=== PATIENT | female | born 1950 | race Caucasian/White ===

== ENCOUNTER 2020-04-07 08:52 | Outpatient (CLI) | payer MEDICARE, SELFPAY ==
--- NOTE | ~2020-04-07 | XR_ITS ---
EXAMINATION: XR abdomen/kub 1V EXAM DATE: 04/07/2020 09:03 INDICATION: Low back pain and hematuria. TECHNIQUE: Frontal upright projection of the upper abdomen, frontal projection of the lower abdomen f or interpretation. There is no prior study for comparison. FINDINGS: There is expected amount of colonic stool and gas. No small bowel dilation, nonobstructiv e bowel gas pattern. There are no suspicious calcifications identified. There is no organomegaly suspected. Mild lumbar levoscoliosis and moderate spondylosis. IMPRESSION: Moderate lumbar spondylosis. Reviewed, dictated and finalized at location B.
== END 2020-04-07 08:53 | disposition home or self-care (01) ==
PROVIDERS: PCP Family Medicine; Visit Provider Nurse Practitioner Family
DX: M47.896 Other spondylosis, lumbar region (principal)
CPT/HCPCS: 74018

== ENCOUNTER → 2020-04-12 08:11 | Outpatient (CLI) | payer MEDICARE, SELFPAY ==
--- NOTE | ~2020-04-12 | MM_ITS ---
EXAMINATION: MM screening [facility] BI w sukumar HISTORY: Screening mammogram TECHNIQUE: Craniocaudal and mediolateral oblique 3-D tomosynthesis images were obtained and synthetic 2-D images were generated. CAD analysis was submitted and interpreted. COMPARISON: Comparison to multiple prior studies sequentially, with oldest reviewed study dated 12/01. BREAST PARENCHYMAL COMPOSITION: There are scattered areas of fibroglandular density. FINDINGS: There is no evidence of suspicious mass, calcification, or architectural distortion to sugg est malignancy in either breast. There has been no suspicious interval change. IMPRESSION: 1. No mammographic evidence of malignancy. 2. Recommend routine screening mammography in one year. BI-RADS Category 1: Negative Reviewed, dictated and finalized at location A.
== END ==
PROVIDERS: PCP Family Medicine; Visit Provider Nurse Practitioner Family
DX: Z12.31 Encounter for screening mammogram for malignant neoplasm of breast (principal)
CPT/HCPCS: 77063; 77067

== ENCOUNTER 2020-04-14 17:06 | Outpatient (CLI) | payer MEDICARE, SELFPAY ==
--- NOTE | ~2020-04-14 | XR_ITS ---
EXAMINATION:XR cervical spine 4-5V DATE: 04/14/2020 17:22 INDICATION: Anesthesia of the skin and bilateral numbness of the arms TECHNIQUE: AP, lateral, lateral swimmers and odontoid views of the cervical spine are provided. COMPARISON: None FINDINGS: There is no fracture. There are 2 mm of anterolisthesis of C4 on C5 and 2 mm of retrolisthe sis of C5 on C6 and C6 on C7. There is severe loss of intervertebral disc space height at C5-6 and C6 -7. The vertebral body heights are maintained. No fracture is identified. Degenerative osteophytes pr oject from the anterior endplates of multiple vertebral bodies. There is severe facet and uncovertebr al joint osteoarthritis of the mid and lower cervical spine. The odontoid is intact. The prevertebral soft tissues are normal. IMPRESSION: 1. Severe cervical spondylosis without acute findings. Reviewed, dictated and finalized at location A.
== END 2020-04-14 17:07 | disposition home or self-care (01) ==
PROVIDERS: PCP Family Medicine; Visit Provider Family Medicine
DX: R20.0 Anesthesia of skin (principal); M47.892 Other spondylosis, cervical region
CPT/HCPCS: 72050

== ENCOUNTER 2020-05-05 09:12 | Outpatient (CLI) | payer MEDICARE, SELFPAY ==
--- NOTE | ~2020-05-05 | MR_ITS ---
EXAMINATION: MR cervical spine wo con EXAM DATE: 05/05/2020 10:08 INDICATION: Cervical spondylosis. TECHNIQUE: Multi-sequential, multiplanar MR images of the cervical spine were obtained without contra st. Axial T2, axial T2 MERGE sequence. Sagittal T1, T2, T2 fat saturation images also obtained. Th ere is no prior study for comparison. FINDINGS: There is 4 mm anterolisthesis C3 on C4, 2 mm anterolisthesis C7 on T1. Moderate disc disea se at C5-6 and C6-7, mild to moderate at C4-5. The spinal cord signal intensity and intrinsic morphol ogy is normal. Cervicomedullary junction is normal in appearance. Level by level evaluation: C2-C3: Disc does not extend beyond the endplate margin. Uncovertebral joint arthropathy: Mild right. Facet joint arthropathy: Mild bilateral. Neural foraminal stenosis: No stenosis. Central canal stenosis: No stenosis. C3-C4: There is a mild diffuse disc bulge. Uncovertebral joint arthropathy: Mild bilateral. Facet joint arthropathy: Moderate to severe bilateral. Neural foraminal stenosis: Mild to moderate bilateral. Central canal stenosis: No stenosis. C4-C5: There is a mild diffuse disc bulge. Uncovertebral joint arthropathy: Mild to moderate bilateral. Facet joint arthropathy: Severe left, moderate right. Neural foraminal stenosis: Moderate to severe left, mild to moderate right. Central canal stenosis: Mild. C5-C6: There is a mild to moderate diffuse disc bulge. Uncovertebral joint arthropathy: Severe bilateral. Facet joint arthropathy: Moderate bilateral. Neural foraminal stenosis: Severe left, moderate to severe right. Central canal stenosis: Mild to moderate . Central canal measures 6-7 mm in mid sagittal AP diameter . C6-C7: There is a mild to moderate diffuse disc bulge. Uncovertebral joint arthropathy: Severe bilateral. Facet joint arthropathy: Mild to moderate. Neural foraminal stenosis: Moderate to severe bilateral. Central canal stenosis: Mild to moderate . Central canal measures 7 mm in mid sagittal AP diameter . C7-T1: There is a minimal diffuse disc bulge. Uncovertebral joint arthropathy: Mild. Facet joint arthropathy: Moderate left, mild right. Neural foraminal stenosis: Mild bilateral. Central canal stenosis: Mild. IMPRESSION: 1. Significant multilevel arthropathy causing neural foraminal stenosis as detailed above. Reviewed, dictated and finalized at location A. IMPRESSION: 1. Significant multilevel arthropathy causing neural foraminal stenosis as det savita above.
== END 2020-05-05 09:13 | disposition home or self-care (01) ==
LOC: ANHIMG 09:17
PROVIDERS: PCP Family Medicine; Visit Provider Family Medicine
DX: M47.22 Other spondylosis with radiculopathy, cervical region (principal)
CPT/HCPCS: 72141

== ENCOUNTER 2020-05-10 00:19 | Outpatient (CLI) | payer MEDICARE, SELFPAY ==
[2020-05-11 14:41] LABS: SARS-CoV-2 RNA PCR Negative
== END 2020-05-10 00:20 | disposition home or self-care (01) ==
LOC: ANHCOVIDDT 00:19
PROVIDERS: PCP Family Medicine; Visit Provider Internal Medicine Gastroenterology
DX: Z01.812 Encounter for preprocedural laboratory examination (principal); Z11.59 Encounter for screening for other viral diseases
CPT/HCPCS: 87635; C9803; U0003

== ENCOUNTER 2020-05-12 02:28 | Day surgery (SDC) | payer MEDICARE, SELFPAY ==
[2020-05-03 12:19] VITALS: BMI 39.0
[2020-05-12 07:57] VITALS: BP 147/78; PULSE 70; RESP 18; TEMP 36; O2SAT 98
[2020-05-12] MEDS: LACTATED RINGERS 1,000 ML 150 ML IV CONT (08:00)
--- NOTE | 2020-05-12 08:55 | PM.IMHP ---
H&P: HPI History of Present Illness Chief complaint: GERD Narrative: Reason for visit EGD. This very pleasant lady seen in consultation at the request of primary physician. Impression: Your very pleasant lady with a history of GERD. Her symptoms seem well controlled, however she has had complaints of fluttering in her chest. She is here for endoscopic evaluation to assess for underlying reflux disease. She also has complaints of hoarseness which may be reflux in origin. HTN. HLD. Obesity. Recommendation: EGD. History: Very pleasant lady's being evaluated for reflux disease. She has a history reflux disease and heartburn is well controlled. She does complain of occasional hoarseness however. The patient did report some fluttering in the lower chest. She denied any significant chest pain, palpitations, shortness of breath, dyspnea on exertion, etc. Patient is here for EGD to assess for reflux disease. patient denies any nausea, vomiting, dysphagia or odynophagia. Lower gastrointestinal symptoms are denied. Physical examination: General: very pleasant patient in no acute distress. HEENT: Head was normocephalic sclerae is clear mouth without masses neck was supple. Heart: Rate rhythm regular without S3 or S4. Lungs: CTA. Abdomen: Soft with no guarding or rigidity. Bowel sounds were active. Neurologic: Cranial nerves 2 through 12 intact. No focal defects. No clonus. Musculoskeletal system: Revealed no joint tenderness or swelling no muscle atrophy. Extremities: Reveal no significant edema. Skin: Warm and dry with normal turgor. Mental status: intact. Patient is alert and oriented. Review of Systems Review of Systems: All systems reviewed & are unremarkable except as noted in HPI and below [facility] Social History Social History Smoking status: Never smoker Alcohol intake: never Meds Home Medications and Allergies Home Medications Medication Instructions Recorded Confirmed Type rosuvastatin 10 mg tablet 10 mg PO DAILY #90 tablet 11/05/19 05/03/20 Rx aspirin 81 mg chewable tablet 81 mg PO DAILY 12/10/19 05/03/20 History loratadine 10 mg tablet 10 mg PO DAILY 12/10/19 05/03/20 History losartan 25 mg tablet 25 mg PO DAILY #90 tablet 12/23/19 05/03/20 Rx pantoprazole 40 mg tablet,delayed 40 mg PO BID #180 tablet 03/21/20 05/03/20 Rx release cyclobenzaprine 10 mg tablet 10 mg PO TID PRN #60 tablet 04/14/20 05/03/20 Rx L. gasseri-B. bifidum-B longum 1 cap PO DAILY 05/03/20 05/03/20 History [[facility]] acetaminophen 500 mg PO Q6H PRN 05/03/20 05/03/20 History ascorbate calcium-bioflavonoid 1 tablet PO DAILY 05/03/20 05/03/20 History [Marjorie-C with Bioflavonoids] calcium carbonate-vitamin D3 1 tablet PO DAILY 05/03/20 05/03/20 History [Caltrate 600 plus D] cholecalciferol (vitamin D3) 10 mcg PO DAILY 05/03/20 05/03/20 History [Vitamin D3] fluticasone propionate [Flonase 1 spray INTRANASAL DAILY 05/03/20 05/03/20 History Allergy Relief] melatonin 5 mg PO HS PRN 05/03/20 05/03/20 History vvuvwsof-rpc-hpgi-FA-lutein 1 tablet PO DAILY 05/03/20 05/03/20 History [Centrum Silver Women] vitamin B complex [Super B-50 1 cap PO DAILY 05/03/20 05/03/20 History Complex] wheat dextrin [Benefiber Clear SF 1 packet PO DAILY 05/03/20 05/03/20 History (dextrin)] Allergies Allergy/AdvReac Type Severity Reaction Status Date / Time No Known Allergies Allergy Verified 05/03/20 12:13 Vital Signs Vital Signs - 24 hr 05/12/20 07:57 Temperature 36.0 C L Pulse Rate 70 Respiratory Rate 18 Blood Pressure 147/78 H Pulse Oximetry 98
[2020-05-12 09:10] VITALS: BP 117/67; PULSE 65; RESP 19; O2SAT 96
[2020-05-12 09:20] VITALS: BP 130/104; PULSE 66; RESP 23; O2SAT 95
[2020-05-12 09:30] VITALS: BP 140/68; PULSE 66; RESP 23; O2SAT 100
== END 2020-05-12 09:45 | disposition home or self-care (01) ==
PROVIDERS: PCP Family Medicine; Visit Provider Internal Medicine Gastroenterology
PROC: 0DJ08ZZ Inspection of Upper Intestinal Tract, Via Natural or Artificial Opening Endoscopic (ICD-10-PCS; CPT 43235; principal; 2020-05-12 08:30)
DX: K21.9 Gastro-esophageal reflux disease without esophagitis (principal); K44.9 Diaphragmatic hernia without obstruction or gangrene; K22.8 Other specified diseases of esophagus; E78.5 Hyperlipidemia, unspecified; I10 Essential (primary) hypertension; E66.01 Morbid (severe) obesity due to excess calories; Z68.41 Body mass index [BMI] 40.0-44.9, adult; Z79.82 Long term (current) use of aspirin
CPT/HCPCS: 43239; 87081; 87635; 88305; C9803; J2704; J7120; U0003

== ENCOUNTER 2020-05-23 07:08 | Outpatient (CLI) | payer MEDICARE, SELFPAY ==
--- NOTE | ~2020-05-23 | XR_ITS ---
EXAMINATION: XR UGIAC w barium swallow DATE: 05/23/2020 08:13 INDICATION: Diaphragmatic hernia TECHNIQUE: The patient drank thick barium, gas-producing crystals, and thin barium. Fluoroscopic spot radiographs of the hypopharynx, esophagus, stomach and proximal small bowel were obtained. A total o f 1084 images were recorded. Fluoroscopy exposure time was 2.0 minutes. COMPARISON: None. FINDINGS: The pharynx is symmetric and without evidence of mass lesion or mucosal irregularity. The esophagus i s tortuous distally but without mass or stricture. There are few tertiary contractions. Esophageal mo tility is otherwise normal. No significant interval change in a moderate-sized sliding-type hiatal he rnia with gastroesophageal junction approximately 6 cm above the level of the diaphragm. There was re current gastroesophageal reflux of moderate amount of contrast to the level of the upper thoracic eso phagus with provocative maneuvers. The stomach and proximal small bowel are normal. IMPRESSION: 1. No significant interval change in a moderate-sized sliding-type hiatal hernia with recurrent gastr oesophageal reflux with provocative maneuvers. Reviewed, dictated and finalized at location A. IMPRESSION: 1. No significant interval change in a moderate-sized sliding-type hiatal herni a with recurrent gastroesophageal reflux with provocative maneuvers.
== END 2020-05-23 07:09 | disposition home or self-care (01) ==
PROVIDERS: PCP Family Medicine; Visit Provider Internal Medicine Gastroenterology
DX: K44.9 Diaphragmatic hernia without obstruction or gangrene (principal)
CPT/HCPCS: 74246

== ENCOUNTER → 2020-06-21 11:23 | Outpatient (CLI) | payer MEDICARE, SELFPAY ==
--- NOTE | ~2020-06-21 | DEXA_ITS ---
Bone Density Report Name: Lora hCen Age: 69 Sex: Female Ethnicity: White Date of : 1950 Indication: postmenopausal; screening for osteoporosis; height loss; Referring Provider: Xuan, Juani Study: Bone densitometry was performed. Exam Date: June 21, 2020 Accession number: [id number] Bone Density: Region BMD T-score Z-score Classification AP Spine (L1, L2) 0.979 0.0 2.1 Normal Femoral Neck (Left) 0.868 0.2 2.1 Normal Total Hip (Left) 0.919 -0.2 1.4 Normal Femoral Neck (Right) 0.849 0.0 1.9 Normal Total Hip (Right) 0.871 -0.6 1.0 Normal Total Hip Mean 0.895 -0.4 1.2 Normal World Health Organization criteria for BMD impression classify patients as: Normal (T-score at or above -1.0), Osteopenia (T-score between -1.0 and -2.5), or Osteoporosis (T-score at or below -2.5). 10-year Fracture Risk: FRAX not reported because: All T-scores for Spine Total, Hip Total, Femoral Neck at or above -1.0 Previous Exams: Region Exam Age BMD T-score BMD Change BMD Change Date g/cm2 vs Baseline vs Previous AP Spine(L1, L2) 06/21/2020 69 0.979 0.0 -0.101 -0.089 12/01/2015 65 1.069 0.8 -0.011 0.087 09/19/2011 61 0.982 0.0 -0.099 -0.099 01/19/2008 57 1.080 0.9 Total Hip(Left) 06/21/2020 69 0.919 -0.2 0.064 0.021 12/01/2015 65 0.898 -0.4 0.043* 0.054 09/19/2011 61 0.844 -0.8 -0.011 -0.011 01/19/2008 57 0.855 -0.7 Total Hip(Right) 06/21/2020 69 0.871 -0.6 0.060 -0.014 12/01/2015 65 0.884 -0.5 0.073* 0.032 09/19/2011 61 0.852 -0.7 0.041 0.041 01/19/2008 57 0.811 -1.1 *Denotes significance at 95% confidence level, LSC for AP Spine = 0.022 g/cm2, LSC for Total Hip = 0.027 g/cm2 Clinical Information Provided by Patient: Has used the following medications: Vitamin D, Calcium Patient maximum height was 65.5 Menopause Age: 50 Drinks caffeinated beverages Onset of menses at age 10 Number of children 2 Impression: The patient has normal bone mass. No significant bone loss was observed. Discussion: BONE DENSITY IS ABOVE THE MINIMUM DESIRABLE LEVEL AT ALL SKELETAL SITES TESTED. This patient?s bone mineral density is above the minimum desirable level (T-score -1.0 or better) at all sites measured. The patient should
== END ==
PROVIDERS: PCP Family Medicine; Visit Provider Nurse Practitioner
DX: Z78.0 Asymptomatic menopausal state (principal)
CPT/HCPCS: 77080

== ENCOUNTER → 2021-03-13 01:45 | Outpatient (CLI) | payer MEDICARE, SELFPAY ==
[2021-03-13 17:04] LABS: SARS-CoV-2 RNA PCR Negative
== END ==
PROVIDERS: PCP Family Medicine; Visit Provider Internal Medicine Gastroenterology
DX: Z01.812 Encounter for preprocedural laboratory examination (principal); Z20.822 Contact with and (suspected) exposure to COVID-19
CPT/HCPCS: C9803; U0003; U0005

== ENCOUNTER 2021-03-16 01:11 | Day surgery (SDC) | payer MEDICARE, SELFPAY ==
[2021-03-06 14:46] VITALS: BMI 34.0
[2021-03-16 10:27] VITALS: BP 136/71; PULSE 62; RESP 18; TEMP 36.6; O2SAT 98; BMI 33.5
[2021-03-16] MEDS: LACTATED RINGERS 1,000 ML 150 ML IV CONT (10:38)
--- NOTE | 2021-03-16 11:03 | WPDANESEPPF ---
Anes - Initial Pre Proc Eval Procedure: Operation Date: 03/16/21 12:30 Proposed Procedures p Colonoscopy - Jimmie Can DO Date/Time: 03/16/21 11:03 Surgeon: Jimmie Can DO Pre Op Diagnosis: alternating diarrhea and constipation Patient Data Age: 70 Gender: F Height: 5 ft 3 in Weight: 85.8 kg Last Vital Signs Temp 97.9 F 03/16/21 10:27 Pulse 62 03/16/21 10:27 Resp 18 03/16/21 10:27 BP 136/71 03/16/21 10:27 Pulse Ox 98 03/16/21 10:27 Allergies Allergy/AdvReac Type Severity Reaction Status Date / Time No Known Allergies Allergy Verified 03/16/21 10:26 Home Medications Medication Instructions Recorded Confirmed Type aspirin 81 mg chewable tablet 81 mg PO DAILY 12/10/19 03/06/21 History loratadine 10 mg tablet 10 mg PO DAILY 12/10/19 03/06/21 History acetaminophen 500 mg PO Q6H PRN 05/03/20 03/06/21 History ascorbate calcium-bioflavonoid 1 tablet PO DAILY 05/03/20 03/06/21 History [Marjorie-C with Bioflavonoids] calcium carbonate-vitamin D3 1 tablet PO DAILY 05/03/20 03/06/21 History [Caltrate 600 plus D] fluticasone propionate [Flonase 1 spray INTRANASAL DAILY 05/03/20 03/06/21 History Allergy Relief] zkwyxsjq-nfp-nmxu-FA-lutein 1 tablet PO DAILY 05/03/20 03/06/21 History [Centrum Silver Women] vitamin B complex [Super B-50 1 cap PO DAILY 05/03/20 03/06/21 History Complex] wheat dextrin [Benefiber Clear SF 1 packet PO DAILY 05/03/20 03/06/21 History (dextrin)] rosuvastatin 10 mg tablet 10 mg PO DAILY #90 tablet 08/27/20 03/06/21 Rx pantoprazole 40 mg tablet,delayed See Rx Instructions .ROUTE 09/07/20 03/06/21 Rx release .COMPLEX #180 tablet losartan 25 mg tablet 25 mg PO DAILY #90 tablet 01/23/21 03/06/21 Rx gabapentin 300 mg capsule 300 mg PO QHS #30 cap 02/20/21 03/06/21 Rx Bifidobacterium infantis [Align] 4 mg PO DAILY 03/06/21 03/06/21 History cholecalciferol (vitamin D3) 50 mcg PO DAILY 03/06/21 03/06/21 History Patient hx anesthesia problems: none Family hx anesthesia problems: none PMFSH Past Medical History Medical History (Updated 03/07/21 @ 12:36 by Michael Bardales NP) Bilateral hand numbness Hyperlipemia Obesity (BMI 35.0-39.9 without comorbidity) Stage 3 chronic kidney disease Family History Family History Mother Family history of osteoarthritis Family history of arthritis Father Cerebrovascular accident Family history of Alzheimer's disease Grandparent Diabetes mellitus Social History Social History Smoking status: Never smoker Alcohol intake: never Living arrangements: with family No - Kendal Final PreProcedure Day of Procedure 03/16/21 11:03 Patient weight: obese Heart: regular rate and rhythm Lungs: clear to auscultation Airway: Mallampati scale class II Neurological: alert and oriented Last oral intake: >/= 8 hours ASA classification: III Emergent: no Anesthetic plan: proceed Anesthesia type and monitoring: general GIVS and standard monitoring Informed Consent: The patient's anesthetic plan and its attendant risks and benefits were discussed with the patient/family/POA. Questions were solicited and answers provided to the satisfaction of the patient/family/POA.
--- NOTE | 2021-03-16 12:10 | WPDGICN ---
GI Consult Note Consult date/time: 03/16/21 12:10 HPI: Reason for visit is colonoscopy. Very pleasant lady seen in consultation at the request of the primary physician. Impression: Here is a very pleasant lady with blood in stool. Evaluate for lying inflammatory neoplastic disease. She did have a history of diarrhea and now difficulty with constipation. This may be secondary to underlying IBS. HTN. HLD. Degenerative disc disease. Neuropathy. Recommendation: Colonoscopy. History: This very pleasant lady's being evaluated for an episode of diarrhea. She had diarrhea for approximately 3 weeks. She was noted to have some black stools. The patient subsequently began having constipation. Further hematochezia, melena acholic stools or tonight. The patient was found to have occult blood in stool. She was referred for colonoscopy. Physical examination: General: very pleasant patient in no acute distress. HEENT: Head was normocephalic sclerae is clear mouth without masses neck was supple. Heart: Rate rhythm regular without S3 or S4. Lungs: CTA. Abdomen: Soft with no guarding or rigidity. Bowel sounds were active. Neurologic: Cranial nerves 2 through 12 intact. No focal defects. No clonus. Musculoskeletal system: Revealed no joint tenderness or swelling no muscle atrophy. Extremities: Reveal no significant edema. Skin: Warm and dry with normal turgor. Mental status: intact. Patient is alert and oriented. Review of Systems Review of Systems: All systems reviewed & are unremarkable except as noted in HPI and below PMFSH Past Medical History Medical History (Updated 03/07/21 @ 12:36 by Michael Bardales NP) Bilateral hand numbness Hyperlipemia Obesity (BMI 35.0-39.9 without comorbidity) Stage 3 chronic kidney disease Family History Family History Mother Family history of osteoarthritis Family history of arthritis Father Cerebrovascular accident Family history of Alzheimer's disease Grandparent Diabetes mellitus Social History Social History Smoking status: Never smoker Alcohol intake: never Living arrangements: with family Meds Home Medications and Allergies Home Medications Medication Instructions Recorded Confirmed Type aspirin 81 mg chewable tablet 81 mg PO DAILY 12/10/19 03/06/21 History loratadine 10 mg tablet 10 mg PO DAILY 12/10/19 03/06/21 History acetaminophen 500 mg PO Q6H PRN 05/03/20 03/06/21 History ascorbate calcium-bioflavonoid 1 tablet PO DAILY 05/03/20 03/06/21 History [Marjorie-C with Bioflavonoids] calcium carbonate-vitamin D3 1 tablet PO DAILY 05/03/20 03/06/21 History [Caltrate 600 plus D] fluticasone propionate [Flonase 1 spray INTRANASAL DAILY 05/03/20 03/06/21 History Allergy Relief] jqwlojsl-tfo-kjlb-FA-lutein 1 tablet PO DAILY 05/03/20 03/06/21 History [Centrum Silver Women] vitamin B complex [Super B-50 1 cap PO DAILY 05/03/20 03/06/21 History Complex] wheat dextrin [Benefiber Clear SF 1 packet PO DAILY 05/03/20 03/06/21 History (dextrin)] rosuvastatin 10 mg tablet 10 mg PO DAILY #90 tablet 08/27/20 03/06/21 Rx pantoprazole 40 mg tablet,delayed See Rx Instructions .ROUTE 09/07/20 03/06/21 Rx release .COMPLEX #180 tablet losartan 25 mg tablet 25 mg PO DAILY #90 tablet 01/23/21 03/06/21 Rx gabapentin 300 mg capsule 300 mg PO QHS #30 cap 02/20/21 03/06/21 Rx Bifidobacterium infantis [Align] 4 mg PO DAILY 03/06/21 03/06/21 History cholecalciferol (vitamin D3) 50 mcg PO DAILY 03/06/21 03/06/21 History Allergies Allergy/AdvReac Type Severity Reaction Status Date / Time No Known Allergies Allergy Verified 03/16/21 10:26 Vital Signs Vital Signs - 24 hr 03/16/21 10:27 Temperature 36.6 C Pulse Rate 62 Respiratory Rate 18 Blood Pressure 136/71 Pulse Oximetry 98
[2021-03-16 12:40] VITALS: BP 98/61; PULSE 65; RESP 19; O2SAT 97
[2021-03-16 12:50] VITALS: BP 124/74; PULSE 67; RESP 22; O2SAT 98
[2021-03-16 13:00] VITALS: BP 138/78; PULSE 66; RESP 19; O2SAT 100
== END 2021-03-16 13:15 | disposition home or self-care (01) ==
PROVIDERS: PCP Family Medicine; Visit Provider Internal Medicine Gastroenterology
PROC: 0DJD8ZZ Inspection of Lower Intestinal Tract, Via Natural or Artificial Opening Endoscopic (ICD-10-PCS; CPT 45378; principal; 2021-03-16 12:30)
DX: R19.5 Other fecal abnormalities (principal); D12.3 Benign neoplasm of transverse colon; K63.5 Polyp of colon; K52.9 Noninfective gastroenteritis and colitis, unspecified; K64.8 Other hemorrhoids; K57.30 Diverticulosis of large intestine without perforation or abscess without bleeding; I12.9 Hypertensive chronic kidney disease with stage 1 through stage 4 chronic kidney disease, or unspecified chronic kidney disease; N18.30 Chronic kidney disease, stage 3 unspecified; E78.5 Hyperlipidemia, unspecified; G62.9 Polyneuropathy, unspecified; Z79.82 Long term (current) use of aspirin; E66.9 Obesity, unspecified; Z68.33 Body mass index [BMI] 33.0-33.9, adult
CPT/HCPCS: 45380; 88305; C9803; J2704; J7120; U0003; U0005

== ENCOUNTER → 2021-04-26 13:18 | Outpatient (CLI) | payer MEDICARE, SELFPAY ==
--- NOTE | ~2021-04-26 | MM_ITS ---
EXAMINATION: MM screening [facility] BI w sukumar HISTORY: Screening mammogram TECHNIQUE: Craniocaudal and mediolateral oblique 3-D tomosynthesis images were obtained and synthetic 2-D images were generated. CAD analysis was submitted and interpreted. COMPARISON: 04/12/2020, 04/02/2018, 12/04/2016 BREAST PARENCHYMAL COMPOSITION: There are scattered areas of fibroglandular density. FINDINGS: Stable architectural distortion in the outer left breast is consistent with history of prio r excisional biopsy. There is no evidence of suspicious mass, calcification, or architectural distort ion to suggest malignancy in either breast. There has been no suspicious interval change. IMPRESSION: 1. No mammographic evidence of malignancy. 2. Recommend routine screening mammography in one year. BI-RADS Category 2: Benign finding(s). Reviewed, dictated and finalized at location A.
== END ==
PROVIDERS: Visit Provider Nurse Practitioner
DX: Z12.31 Encounter for screening mammogram for malignant neoplasm of breast (principal)
CPT/HCPCS: 77063; 77067

== ENCOUNTER 2022-03-22 12:30 | Outpatient (CLI) | payer MEDICARE, SELFPAY ==
--- NOTE | 2022-03-22 12:46 | ECHO_ITS ---
Patient Info Name: Lora Chen Age: 71 years : 1950 Gender: Female Ht: 64 in Wt: 160 lbs BSA: 1.83 m2 HR: 72 bpm BP: 163 / 82 mmHg Technical Quality: Good Exam Date: 03/22/2022 1:11 PM Exam Location: [facility] Patient Status: Outpatient Admit Date: 03/22/2022 Staff Ordering Physician: Leopoldo Castaneda DO Test Engineering Intern: Sergei Randolph RDCS, RT Attending Provider: Leopoldo Castaneda DO Referring Physician: Leonel ZAMBRANO; Exam Type: CA echo doppler color flow Study Info Indications R01.1 - Cardiac murmur, unspecified Complete two-dimensional, color flow and Doppler transthoracic echocardiogram is performed. Strain analysis performed. Summary 1. Complete two-dimensional, color flow and Doppler transthoracic echocardiogram is performed. 2. Left ventricular chamber dimension is normal. 3. Left ventricular systolic function is normal, estimated at 60-65%. 4. The left ventricular diastolic function is grade I diastolic dysfunction. 5. E/e' 7 is not elevated. 6. Global longitudinal strain is normal at -23.5%. 7. Left atrial chamber dimension is mildly enlarged. 8. There is mild aortic valve sclerosis. 9. There is trace mitral valve regurgitation. 10. There is mild tricuspid valve regurgitation. 11. No pulmonary hypertension, estimated pulmonary arterial systolic pressure is 36 mmHg. 12. There is trace pulmonic regurgitation. Left Ventricle E/e' 7 is not elevated. Global longitudinal strain is normal at -23.5%. Left ventricular chamber dimension is normal. Left ventricular systolic function is normal, estimated at 60-65%. The left ventricular diastolic function is grade I diastolic dysfunction. Right Ventricle Right ventricular systolic function is normal and with normal TAPSE 2.4 cm. Right ventricular chamber dimension is normal. Left Atria Left atrial chamber dimension is mildly enlarged. Right Atria Right atrial chamber dimension is normal. Aortic Valve The aortic valve is trileaflet. There is mild aortic valve sclerosis. There is no aortic valve stenosis. There is no aortic valve regurgitation. Pulmonic Valve There is trace pulmonic regurgitation. Mitral Valve There is no mitral valve stenosis. There is trace mitral valve regurgitation. Tricuspid Valve There is mild tricuspid valve regurgitation. No pulmonary hypertension, estimated pulmonary arterial systolic pressure is 36 mmHg. Pericardium/Pleural There is no pericardial effusion. Inferior Vena Cava Normal inferior vena cava with >50% collapse upon inspiration consistent with normal right atrial pressure, 5 mmHg. Aorta The aortic root size at the sinus of Valsalva is normal. Left Ventricular Outflow Tract Name Value Normal LVOT 2D LVOT Diameter 2.0 cm LVOT Doppler LVOT Peak Gradient 5 mmHg LVOT Mean Gradient 2 mmHg LVOT VTI 28 cm LVOT VTI/AV VTI Ratio 0.8 LVOT Stroke Volume 85 ml LVOT CO 6.0 l/min LVOT C
== END 2022-03-22 12:31 | disposition home or self-care (01) ==
PROVIDERS: PCP Family Medicine; Visit Provider Internal Medicine Cardiovascular Disease
DX: R01.1 Cardiac murmur, unspecified (principal); I36.1 Nonrheumatic tricuspid (valve) insufficiency
CPT/HCPCS: 93306

== ENCOUNTER → 2022-08-06 10:22 | Outpatient (CLI) | payer MEDICARE, SELFPAY ==
--- NOTE | ~2022-08-06 | US_ITS ---
EXAMINATION: US soft tissue head and neck DATE: 08/06/2022 10:54 INDICATION: Localized swelling, mass and lump, neck. TECHNIQUE: Multiple ultrasound grayscale images of the neck were obtained. COMPARISON: None. FINDINGS: The right thyroid lobe measures 5.1 x 1.4 x 1.7 cm. The left thyroid lobe measures 4.0 x 1.2 x 1.7 c m. In the right thyroid lobe, there is a 1.3 cm almost completely cystic nodule (TI-RADS TR1). In th e right thyroid lobe, there is a 17 mm solid, hypoechoic, wider than tall nodule with lobulated alie n without echogenic foci (TR4). In the left thyroid lobe, there is a 5 mm solid, isoechoic, wider sukhjinder n tall nodule with ill-defined margin without echogenic foci (TR3). There are normal lymph nodes in t he neck bilaterally. IMPRESSION: 1. Multinodular goiter. Consider ultrasound-guided fine-needle aspiration of the 17 mm right thyroid nodule. Reviewed, dictated and finalized at location A. IMPRESSION: 1. Multinodular goiter. Consider ultrasound-guided fine-needle aspiration of th e 17 mm right thyroid nodule.
== END ==
PROVIDERS: PCP Physician Assistant Medical; Visit Provider Physician Assistant Medical
DX: E04.2 Nontoxic multinodular goiter (principal)
CPT/HCPCS: 76536

== ENCOUNTER 2022-08-27 09:32 | Outpatient (CLI) | payer MEDICARE, SELFPAY ==
--- NOTE | ~2022-08-27 | US_ITS ---
EXAMINATION: US FNA w image guidance DATE: 08/27/2022 10:48 INDICATION: Nontoxic single thyroid nodule. TECHNIQUE: The procedure and its benefits and risks were discussed with the patient. Risks specifically discusse d included bleeding. The patient verbalized understanding of the risks and agreed to proceed. The nec k was prepped and draped in the usual sterile manner. 1% lidocaine was used for local anesthesia. 6 passes were made with a 25G needle into the lesion under ultrasound guidance. There were no immedia te complications. FINDINGS: Grayscale ultrasound images demonstrate needles advanced into a 17 mm nodule in right thyroid lobe fo r biopsy. IMPRESSION: 1. Ultrasound-guided fine needle aspiration of a right thyroid nodule. Reviewed, dictated and finalized at location A. LINER
== END 2022-08-27 09:33 | disposition home or self-care (01) ==
PROVIDERS: PCP Family Medicine; Visit Provider Physician Assistant Medical
DX: E04.1 Nontoxic single thyroid nodule (principal)
CPT/HCPCS: 10005; 88173; 88305

== ENCOUNTER → 2022-09-20 09:24 | Outpatient (CLI) | payer MEDICARE, SELFPAY ==
--- NOTE | ~2022-09-20 | XR_ITS ---
EXAMINATION: XR chest 2V 09/20/2022 09:32 INDICATION: Cough and shortness of breath PROCEDURE: 2 view chest COMPARISON: Comparison to multiple prior studies sequentially, with oldest reviewed study dated 09/14. FINDINGS: The lungs are clear. The cardiomediastinal silhouette is within normal limits. There are no pleural effusions. There is no pneumothorax suspected. There is a hiatal hernia. IMPRESSION: 1: NO ACUTE CARDIOPULMONARY DISEASE. Reviewed, dictated and finalized at location A. 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
== END ==
PROVIDERS: PCP Family Medicine; Visit Provider Family Medicine
DX: R05.9 Cough, unspecified (principal); R06.02 Shortness of breath
CPT/HCPCS: 71046

== ENCOUNTER → 2022-10-23 07:15 | Outpatient (CLI) | payer MEDICARE, SELFPAY ==
--- NOTE | ~2022-10-23 | MM_ITS ---
EXAMINATION: MM screening [facility]to BI w sukumar HISTORY: Screening mammogram TECHNIQUE: Craniocaudal and mediolateral oblique 3-D tomosynthesis images were obtained and synthetic 2-D images were generated. CAD analysis was submitted and interpreted. COMPARISON: 04/26/2021, 04/12/2020, 04/02/2018 right lateral screening mammogram examinations BREAST PARENCHYMAL COMPOSITION: There are scattered areas of fibroglandular density. FINDINGS: Stable left architectural distortion secondary to prior biopsies. Scattered benign calcific ations are noted bilaterally. There is no evidence of suspicious mass, calcification, or architectura l distortion to suggest malignancy in either breast. There has been no suspicious interval change. IMPRESSION: 1. No mammographic evidence of malignancy. 2. Recommend routine screening mammography in one year. BI-RADS Category 2: Benign finding(s). Reviewed, dictated and finalized at location A. MAN
== END ==
PROVIDERS: PCP Family Medicine; Visit Provider Nurse Practitioner
DX: Z12.31 Encounter for screening mammogram for malignant neoplasm of breast (principal)
CPT/HCPCS: 77063; 77067

== ENCOUNTER 2022-12-21 01:16 | Day surgery (SDC) | payer MEDICARE, SELFPAY ==
[2022-12-12 13:00] VITALS: BMI 30.9
[2022-12-21 08:04] VITALS: BP 143/55; PULSE 61; RESP 18; TEMP 36.4; O2SAT 100; BMI 32.5
[2022-12-21] MEDS: LACTATED RINGERS 1,000 ML 150 ML IV CONT (08:31)
--- NOTE | 2022-12-21 08:42 | PM.HPGS ---
History of Present Illness History of Present Illness Consent: Risks, benefits, and alternatives have been discussed and questions answered. Patient agrees to proceed with procedure. Chief complaint: GERD, hiatal hernia Narrative: Lora Chen is a 72 year old female with gerd that is well controlled after increased ppi to twice daily, also h/o hiatal hernia Review of Systems Constitutional: Constitutional: Denies headache(s) and Denies weakness Eyes: Eyes: Denies blurry vision ENT: Reports Normal hearing present, Denies headache(s) and Denies neck pain Cardiovascular: Cardiovascular: Denies chest pain and Denies dyspnea Respiratory: Respiratory: Denies dyspnea Gastrointestinal: Gastrointestinal: Reports no additional gastrointestinal complaints Genitourinary: Genitourinary: Denies dysuria Musculoskeletal: Musculoskeletal: Denies neck pain Integumentary/Breasts: Skin/Breast: Denies dry skin Neurologic: Reports Normal hearing present, Denies headache(s) and Denies weakness Psychiatric: Psychiatric: Denies anxiety Endocrine: Endocrine: Denies change in body appearance Hematologic/Lymphatic: Hematologic/Lymphatic: Denies easy bleeding Allergic/Immunologic: Allergic/Immunologic: Denies urticaria PMFSH Past Medical History Medical History Bilateral hand numbness BMI 28.0-28.9,adult BMI greater than 30 Cardiomyopathy CKD (chronic kidney disease) stage 3, GFR 30-59 ml/min Colon cancer screening Colon polyps GERD (gastroesophageal reflux disease) Hiatal hernia History of esophageal stricture Hyperlipemia Microscopic colitis Obesity (BMI 35.0-39.9 without comorbidity) Stenosis of cervical spine with myelopathy Swelling of joint of hand Family History Family History Mother Family history of osteoarthritis Family history of arthritis Father Cerebrovascular accident Family history of Alzheimer's disease Grandparent Diabetes mellitus Social History Social History Smoking status: Never smoker Alcohol intake: never Drinks per week: 5 Substance use: never Substance use type: does not use Living arrangements: alone Spiritual care concerns: No Meds Home Medications and Allergies Home Medications Medication Instructions Recorded Confirmed Type loratadine 10 mg tablet (Claritin) 10 mg PO DAILY 12/10/19 12/12/22 History fluticasone propionate 50 1 spray intranasal DAILY 05/03/20 12/12/22 History mcg/actuation nasal spray,suspension (Flonase Allergy Relief) multivit with 1 tablet PO DAILY 05/03/20 12/12/22 History nnmtwbvu-oqse-GM-lutein 8 mg iron-400 mcg-300 mcg tablet (Centrum Silver Women) vitamin B complex (Super B-50 1 cap PO DAILY 05/03/20 10/25/22 History Complex capsule) wheat dextrin 3 gram/3.5 gram oral 1 packet PO DAILY 05/03/20 10/25/22 History powder packet (Benefiber Clear Sugar Free(dextrin)) Bifidobacterium infantis 4 mg 4 mg PO DAILY 03/06/21 10/25/22 History capsule (Align) cholecalciferol (vitamin D3) 50 50 mcg PO DAILY 03/06/21 10/25/22 History mcg (2,000 unit) tablet hard/soft/gas permeable prods 11/02/21 10/25/22 History (Systane Contacts eye drops) rosuvastatin 10 mg tablet 10 mg PO DAILY #90 tabs 04/19/22 10/25/22 Rx metronidazole 0.75 % topical cream 1 applic topical BID 08/01/22 12/12/22 History vit C 250 mg-E 90 mg-zinc 40 1 tablet PO QAM AND QPM 08/01/22 10/25/22 History mg-copper 1 nn-waqokt-tncvtg chew tablet (PreserVision AREDS-2) budesonide 3 mg 3 mg PO DAILY 1 month #30 ea 10/25/22 12/12/22 Rx capsule,delayed,extended release pantoprazole 40 mg tablet,delayed 40 mg PO DAILY #90 tabs 12/21/22 Rx release Allergies Allergy/AdvReac Type Severity Reaction Status Date / Time No Known Allergies Allergy Verifi
--- NOTE | 2022-12-21 08:52 | WPDANESEPPF ---
Anes - Initial Pre Proc Eval Procedure: Operation Date: 12/21/22 09:00 Proposed Procedures p Esophagogastroduodenoscopy - Ignacio Chaney MD Date/Time: 12/21/22 08:52 Surgeon: Ignacio Chaney MD Pre Op Diagnosis: GERD, hiatal hernia Patient Data Age: 72 Gender: F Height: 1.63 m Weight: 86.1 kg Last Vital Signs Temp 97.6 F 12/21/22 08:04 Pulse 61 12/21/22 08:04 Resp 18 12/21/22 08:04 BP 143/55 H 12/21/22 08:04 Pulse Ox 100 12/21/22 08:04 O2 Del Method Room Air 12/21/22 08:04 Allergies Allergy/AdvReac Type Severity Reaction Status Date / Time No Known Allergies Allergy Verified 10/25/22 10:36 Home Medications Medication Instructions Recorded Confirmed Type loratadine 10 mg tablet (Claritin) 10 mg PO DAILY 12/10/19 12/12/22 History fluticasone propionate 50 1 spray intranasal DAILY 05/03/20 12/12/22 History mcg/actuation nasal spray,suspension (Flonase Allergy Relief) multivit with 1 tablet PO DAILY 05/03/20 12/12/22 History ebqabait-vjny-FB-lutein 8 mg iron-400 mcg-300 mcg tablet (Centrum Silver Women) vitamin B complex (Super B-50 1 cap PO DAILY 05/03/20 10/25/22 History Complex capsule) wheat dextrin 3 gram/3.5 gram oral 1 packet PO DAILY 05/03/20 10/25/22 History powder packet (Benefiber Clear Sugar Free(dextrin)) Bifidobacterium infantis 4 mg 4 mg PO DAILY 03/06/21 10/25/22 History capsule (Align) cholecalciferol (vitamin D3) 50 50 mcg PO DAILY 03/06/21 10/25/22 History mcg (2,000 unit) tablet hard/soft/gas permeable prods 11/02/21 10/25/22 History (Systane Contacts eye drops) rosuvastatin 10 mg tablet 10 mg PO DAILY #90 tabs 04/19/22 10/25/22 Rx metronidazole 0.75 % topical cream 1 applic topical BID 08/01/22 12/12/22 History vit C 250 mg-E 90 mg-zinc 40 1 tablet PO QAM AND QPM 08/01/22 10/25/22 History mg-copper 1 ru-gulsuu-aikohf chew tablet (PreserVision AREDS-2) budesonide 3 mg 3 mg PO DAILY 1 month #30 ea 10/25/22 12/12/22 Rx capsule,delayed,extended release pantoprazole 40 mg tablet,delayed 40 mg PO DAILY #90 tabs 12/21/22 Rx release Patient hx anesthesia problems: none Family hx anesthesia problems: none Results Review: All pre-operative results and documents have been reviewed as part of the pre-operative evaluation. [facility] Past Medical History Medical History Bilateral hand numbness BMI 28.0-28.9,adult BMI greater than 30 Cardiomyopathy CKD (chronic kidney disease) stage 3, GFR 30-59 ml/min Colon cancer screening Colon polyps GERD (gastroesophageal reflux disease) Hiatal hernia History of esophageal stricture Hyperlipemia Microscopic colitis Obesity (BMI 35.0-39.9 without comorbidity) Stenosis of cervical spine with myelopathy Swelling of joint of hand Family History Family History Mother Family history of osteoarthritis Family history of arthritis Father Cerebrovascular accident Family history of Alzheimer's disease Grandparent Diabetes mellitus Social History Social History Smoking status: Never smoker Alcohol intake: never Drinks per week: 5 Substance use: never Substance use type: does not use Living arrangements: alone Spiritual care concerns: No Anes - Eval Final PreProcedure Day of Procedure 12/21/22 08:52 Patient weight: normal Heart: regular rate and rhythm Lungs: clear to auscultation Airway: Mallampati scale class II Neurological: alert and oriented Last oral intake: >/= 8 hours ASA classification: III Emergent: no Anesthetic plan: proceed Anesthesia type and monitoring: general GIVS and standard monitoring Results Review: All pre-operative results and documents have been reviewed as part of the pre-operative evaluation. Informed Cons
[2022-12-21 09:11] VITALS: BP 103/46; PULSE 68; RESP 22; O2SAT 98
[2022-12-21 09:21] VITALS: BP 134/60; PULSE 66; RESP 20; O2SAT 100
[2022-12-21 09:31] VITALS: BP 134/64; PULSE 68; RESP 20; O2SAT 100
== END 2022-12-21 09:37 | disposition home or self-care (01) ==
PROVIDERS: PCP Family Medicine; Visit Provider Internal Medicine Gastroenterology
PROC: 0DJ08ZZ Inspection of Upper Intestinal Tract, Via Natural or Artificial Opening Endoscopic (ICD-10-PCS; CPT 43235; principal; 2022-12-21 09:00)
DX: K21.9 Gastro-esophageal reflux disease without esophagitis (principal); K44.9 Diaphragmatic hernia without obstruction or gangrene; I42.9 Cardiomyopathy, unspecified; N18.30 Chronic kidney disease, stage 3 unspecified; E66.9 Obesity, unspecified; M48.02 Spinal stenosis, cervical region; G99.2 Myelopathy in diseases classified elsewhere; Z86.010 Personal history of colon polyps
CPT/HCPCS: 43239; 88305; J2704; J7120

== ENCOUNTER 2023-03-18 10:22 | Emergency (ER) | payer MEDICARE, SELFPAY ==
--- NOTE | ~2023-03-18 | XR_ITS ---
AP and oblique views of the left ribs, and PA and lateral chest radiograph Clinical History: Pain Findings: No rib fracture is seen. Osseous alignment is anatomic. Lungs are clear, without focal cons olidation or pleural effusion. Cardiomediastinal contour is within normal limits. Moderate hiatal her brooke present. Cervical spine fixation hardware noted. Impression: No rib fracture is seen. Clear lungs. Moderate hiatal hernia. Reviewed, dictated and finalized at location . Impression: No rib fracture is seen. Clear lungs. Moderate hiatal hernia.
[2023-03-18 10:38] VITALS: BP 129/65; PULSE 59; RESP 12; TEMP 36.9; O2SAT 98
--- NOTE | 2023-03-18 10:45 | ED.FALL ---
HPI - Fall General Chief Complaint: Fall Stated Complaint: Fell, abrasions on face, left arm pain, sore throa Time Seen by Provider: 03/18/23 10:40 Source: patient Mode of arrival: ambulatory Limitations: no limitations History of Present Illness HPI Narrative: Lora is a 72-year-old female patient presenting to the clinic today with complaints of abrasions on nose, left-sided chest wall pain from a a fall yesterday. Also reports that she has got sore throat and runny nose/congestion that began last night. She denies any known fever or chills. Denies any shortness of breath, nausea, vomiting, or diarrhea. Took an at-home COVID test this morning and was negative Related Data Home Medications Medication Instructions Recorded Confirmed loratadine 10 mg tablet (Claritin) 10 mg PO DAILY 12/10/19 03/18/23 fluticasone propionate 50 1 spray intranasal DAILY 05/03/20 03/18/23 mcg/actuation nasal spray,suspension (Flonase Allergy Relief) multivit with 1 tablet PO DAILY 05/03/20 03/18/23 miqvlnoq-kgko-HQ-lutein 8 mg iron-400 mcg-300 mcg tablet (Centrum Silver Women) vitamin B complex (Super B-50 1 cap PO DAILY 05/03/20 03/18/23 Complex capsule) wheat dextrin 3 gram/3.5 gram oral 1 packet PO DAILY 05/03/20 03/18/23 powder packet (Benefiber Clear Sugar Free(dextrin)) Bifidobacterium infantis 4 mg 4 mg PO DAILY 03/06/21 03/18/23 capsule (Align) cholecalciferol (vitamin D3) 50 50 mcg PO DAILY 03/06/21 03/18/23 mcg (2,000 unit) tablet hard/soft/gas permeable prods 11/02/21 03/18/23 (Systane Contacts eye drops) metronidazole 0.75 % topical cream 1 applic topical BID 08/01/22 03/18/23 vit C 250 mg-E 90 mg-zinc 40 1 tablet PO QAM AND QPM 08/01/22 03/18/23 mg-copper 1 zg-eupawl-lafwji chew tablet (PreserVision AREDS-2) doxycycline hyclate 20 mg tablet 20 mg PO Q12H 01/04/23 03/18/23 lisinopril 10 mg tablet 10 mg PO DAILY 01/04/23 03/18/23 Allergies Allergy/AdvReac Type Severity Reaction Status Date / Time No Known Allergies Allergy Verified 03/18/23 10:40 Review of Systems Review of Systems: Pertinent positives per HPI. Patient denies any fever, chills, rash, headache, visual changes, dizziness, cough, shortness of breath, palpitations, nausea, vomiting, diarrhea, constipation, abdominal pain, or any urinary issues. PMFSH Past Medical History Medical History Bilateral hand numbness BMI 28.0-28.9,adult BMI greater than 30 Cardiomyopathy CKD (chronic kidney disease) stage 3, GFR 30-59 ml/min Colon cancer screening Colon polyps GERD (gastroesophageal reflux disease) Hiatal hernia History of esophageal stricture Hyperlipemia Microscopic colitis Obesity (BMI 35.0-39.9 without comorbidity) Stenosis of cervical spine with myelopathy Swelling of joint of hand Surgical History Surgical History History of bilateral knee replacement 2008 & 2009 Hx of spinal surgery 2020 Family History Family History Mother Family history of osteoarthritis Family history of arthritis Father Cerebrovascular accident Family history of Alzheimer's disease Grandparent Diabetes mellitus Other Hypertension Social History Social History Smoking status: Never smoker Alcohol intake: current Drinks per week: 5 Alcohol use details: Socially Substance use: never Substance use type: does not use Living arrangements: alone Occupation/Education: retired Spiritual care concerns: No Comments At the time of my signature, I reviewed and agree with the nursing past medical, surgical, social, and family history. There is no relevant family history pertinent to the patient complaint. Exam Narrative: General: Well-developed, well nourished
[2023-03-18] MEDS: TETANUS,DIPHTHERIA,AC PERTUSSIS ADULT (0.5 ML) BOOSTRIX IM (11:03)
== END 2023-03-18 11:15 | disposition home or self-care (01) ==
PROVIDERS: Emergency Provider Nurse Practitioner Family; PCP Family Medicine
DX: S29.011A Strain of muscle and tendon of front wall of thorax, initial encounter (principal); S00.31XA Abrasion of nose, initial encounter; J06.9 Acute upper respiratory infection, unspecified; J02.9 Acute pharyngitis, unspecified; W19.XXXA Unspecified fall, initial encounter; Z23 Encounter for immunization; I12.9 Hypertensive chronic kidney disease with stage 1 through stage 4 chronic kidney disease, or unspecified chronic kidney disease; N18.30 Chronic kidney disease, stage 3 unspecified; K21.9 Gastro-esophageal reflux disease without esophagitis; E78.5 Hyperlipidemia, unspecified; E66.9 Obesity, unspecified; Z68.32 Body mass index [BMI] 32.0-32.9, adult; M48.02 Spinal stenosis, cervical region; G99.2 Myelopathy in diseases classified elsewhere; Z96.653 Presence of artificial knee joint, bilateral
CPT/HCPCS: 71046; 71100; 87081; 87880; 90471; 90715; 99214; G0463

== ENCOUNTER → 2023-09-30 12:15 | Outpatient (CLI) | payer MEDICARE, SELFPAY ==
--- NOTE | ~2023-09-30 | XR_ITS ---
Clinical Indication: Bronchitis PA and lateral views of the chest: Comparison: 03/18/2023 Findings: The lungs are clear, without evidence of focal consolidation or pleural effusion. Cardiome diastinal silhouette is within normal limits. Bones and soft tissues are unremarkable. Impression: Normal chest. Reviewed, dictated and finalized at location . 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
== END ==
PROVIDERS: PCP Family Medicine; Visit Provider Nurse Practitioner Adult Health
DX: J40 Bronchitis, not specified as acute or chronic (principal)
CPT/HCPCS: 71046

== ENCOUNTER → 2023-12-06 11:30 | Outpatient (CLI) | payer MEDICARE, SELFPAY ==
--- NOTE | ~2023-12-06 | XR_ITS ---
Clinical Indication: Cough PA and lateral views of the chest: Comparison: 09/30/2023 Findings: The lungs are clear, without evidence of focal consolidation or pleural effusion. Cardiome diastinal silhouette is within normal limits. Probable hiatal hernia. Impression: Clear lungs. Probable hiatal hernia, unchanged. Reviewed, dictated and finalized at location . OGRAPHIC ARTIST Impression: Clear lungs. Probable hiatal hernia, unchanged.
== END ==
PROVIDERS: PCP Internal Medicine Medical Oncology; Visit Provider Nurse Practitioner Adult Health
DX: J40 Bronchitis, not specified as acute or chronic (principal)
CPT/HCPCS: 71046

== ENCOUNTER 2024-06-04 08:25 | Outpatient (CLI) | payer MEDICARE, SELFPAY ==
--- NOTE | ~2024-06-04 | MR_ITS ---
EXAMINATION: MR brain/brain stem wo con DATE: 06/04/2024 09:36 INDICATION: Asymmetric rest tremor. TECHNIQUE: Magnetic resonance imaging (MRI) of the brain and brainstem was performed without intraven ous contrast. COMPARISON: None. FINDINGS: There is no intracranial hemorrhage, acute infarction, or abnormal intracranial mass lesion . There are scattered areas of nonspecific increased T2-weighted signal intensity in the cerebral whi te matter. The ventricles are normal in size. The orbits are normal. There is mucosal thickening in the paranasal sinuses. The mastoid air cells are normal. IMPRESSION: 1. Mild nonspecific cerebral white matter disease, which likely represents chronic small vessel ische carlyle disease. Reviewed, dictated and finalized at location A. IMPRESSION: 1. Mild nonspecific cerebral white matter disease, which likely represents track manager mylene small vessel ischemic disease.
== END 2024-06-04 08:26 | disposition home or self-care (01) ==
PROVIDERS: PCP Family Medicine; Referring Provider Psychiatry & Neurology Neurology; Visit Provider Student in an Organized Health Care Education/Training Program
DX: R25.9 Unspecified abnormal involuntary movements (principal); R90.82 White matter disease, unspecified
CPT/HCPCS: 70551

== ENCOUNTER 2024-08-31 13:53 | Outpatient (CLI) | payer MEDICARE, SELFPAY ==
--- NOTE | ~2024-08-31 | MM_ITS ---
EXAMINATION: MM screening [facility] BI w sukumar HISTORY: Screening mammogram TECHNIQUE: Craniocaudal and mediolateral oblique 3-D tomosynthesis images were obtained and synthetic 2-D images were generated. CAD analysis was submitted and interpreted. COMPARISON: 10/23/2022, 04/26/2021, 04/12/2020 BREAST PARENCHYMAL COMPOSITION:Not Dense. There are scattered areas of fibroglandular density. FINDINGS: No suspicious mass, calcification, or architectural distortion are identified in either carissa ast to suggest malignancy. There has been no suspicious interval change. IMPRESSION: No mammographic evidence of malignancy. Recommend routine screening mammography in one year. BI-RADS Category 1: Negative Reviewed, dictated and finalized at location . NG CAN WORKER
== END 2024-08-31 13:54 | disposition home or self-care (01) ==
PROVIDERS: PCP Family Medicine; Visit Provider Nurse Practitioner
DX: Z12.31 Encounter for screening mammogram for malignant neoplasm of breast (principal); Z78.0 Asymptomatic menopausal state
CPT/HCPCS: 77063; 77067

== ENCOUNTER 2025-09-02 13:52 | Outpatient (CLI) | payer MEDICARE, SELFPAY ==
--- NOTE | ~2025-09-02 | MM_ITS ---
EXAMINATION: MM screening jose alberto BI w sukumar HISTORY: Screening TECHNIQUE: Craniocaudal and mediolateral oblique 3-D tomosynthesis images were obtained and synthetic 2-D images were generated. CAD analysis was submitted and interpreted. COMPARISON: Comparison to multiple prior studies sequentially, with oldest reviewed study dated 12/04/2016. BREAST PARENCHYMAL COMPOSITION: Not dense: There are scattered areas of fibroglandular density. FINDINGS: There are developing right breast asymmetries centrally, middle- posterior depth. The left breast is stable without evidence for malignancy. IMPRESSION: 1. Developing right breast asymmetries. 2. Additional mammographic views and possible breast ultrasound are recommended. BI-RADS Category 0: Incomplete: Needs additional imaging evaluation. Reviewed, dictated and finalized at location O. GER CLINICAL INFORMATICS IMPRESSION: 1. Developing right breast asymmetries. 2. Additional mammographic views and possible breast ultrasound are recommended . BI-RADS Category 0: Incomplete: Needs additional imaging evaluation.
== END 2025-09-02 13:53 | disposition home or self-care (01) ==
LOC: MICIMG 13:53
PROVIDERS: PCP Family Medicine; Visit Provider Nurse Practitioner
DX: Z12.31 Encounter for screening mammogram for malignant neoplasm of breast (principal); R92.8 Other abnormal and inconclusive findings on diagnostic imaging of breast
CPT/HCPCS: 77063; 77067

== ENCOUNTER 2025-09-27 13:46 | Outpatient (CLI) | payer MEDICARE, SELFPAY ==
--- NOTE | ~2025-09-27 | US_ITS ---
EXAMINATION: US renal BI, 09/27/2025 13:48 SEGMENT ASSEMBLER HISTORY: N28.9 - Disorder of kidney and ureter, unspecified Comparison: None Technique: Cochran-scale and color Doppler images were obtained. Findings: KIDNEYS: Renal cortices intact, no solid masses, cysts or calculi, no hydronephrosis. Right Kidney: Right kidney 8.6 x 3.7 x 4.3 cm, normal. Left Kidney: Left kidney 9.4 x 4.8 x 3.8 cm, normal Bladder: The bladder is unremarkable. . Impression: No acute abnormality. Reviewed, dictated and finalized at location P. ENT ASSEMBLER Impression: No acute abnormality.
== END 2025-09-27 13:47 | disposition home or self-care (01) ==
LOC: MICIMG 13:46
PROVIDERS: PCP Family Medicine; Visit Provider Internal Medicine Nephrology
DX: N28.9 Disorder of kidney and ureter, unspecified (principal)
CPT/HCPCS: 76770